=== PATIENT | female | born 1955 | race Hispanic/Latino ===

== ENCOUNTER 2019-12-06 08:21 | Outpatient (CLI) | payer OTHER, SELFPAY ==
--- NOTE | 2019-12-06 11:00 | NEURO_ITS ---
Patient Number: [id number] Impression: # Complains of generalized weakness with history of Sjogren?s Disease. # Mild Carpal Tunnel Syndrome. # No generalized neuropathy. # Normal needle/EMG exam. # Clinical correlation recommended. Nerve Conduction Studies Anti Sensory Summary Table Stim Site NR Peak (ms) P-T Amp (?V) Site1 Site2 Delta-P (ms) Dist (cm) Cain (m/s) Left Median Anti Sensory (2-3nd Digit) Wrist 3.3 9.5 Wrist 2-3nd Digit 3.3 14.0 42 Wrist 3.2 4.8 Wrist 2-3nd Digit 3.3 14.0 42 Right Median Anti Sensory (2-3nd Digit) Wrist 3.4 11.5 Wrist 2-3nd Digit 3.4 14.0 41 Wrist 3.5 3.2 Wrist 2-3nd Digit 3.4 14.0 41 Left Radial Anti Sensory (Base 1st Digit) Wrist 2.4 21.1 Wrist Base 1st Digit 2.4 0.0 Right Radial Anti Sensory (Base 1st Digit) Wrist 2.7 5.4 Wrist Base 1st Digit 2.7 0.0 Left Sup Fibular Anti Sensory (Ant Lat Mall) 14 cm 3.6 13.9 14 cm Ant Lat Mall 3.6 16.0 44 Right Sup Fibular Anti Sensory (Ant Lat Mall) 14 cm 3.4 15.8 14 cm Ant Lat Mall 3.4 16.0 47 Left Sural Anti Sensory (Lat Mall) Calf 3.9 6.8 Calf Lat Mall 3.9 16.0 41 Right Sural Anti Sensory (Lat Mall) Calf 3.9 8.7 Calf Lat Mall 3.9 16.0 41 Left Ulnar Anti Sensory (5th Digit) Wrist 3.3 20.4 Wrist 5th Digit 3.3 14.0 42 Right Ulnar Anti Sensory (5th Digit) Wrist 2.5 17.1 Wrist 5th Digit 2.5 14.0 56 Motor Summary Table Stim Site NR Onset (ms) O-P Amp (mV) Site1 Site2 Delta-0 (ms) Dist (cm) Cain (m/s) Left Median Motor (Abd Poll Brev) Wrist 3.7 4.4 Elbow Wrist 4.4 25.0 57 Elbow 8.1 3.3 Right Median Motor (Abd Poll Brev) Wrist 3.6 2.9 Elbow Wrist 4.4 25.0 57 Elbow 8.0 1.7 Left Peroneal Motor (Vastus Med) Ankle 4.6 1.2 Popit Ankle 7.9 34.0 43 Popit 12.5 0.6 Right Peroneal Motor (Vastus Med) Ankle 4.6 2.2 Popit Ankle 6.3 29.0 46 Popit 10.9 2.3 Left Tibial Motor (Abd Bender Brev) Ankle 5.3 3.0 Knee Ankle 8.1 35.0 43 Knee 13.4 2.2 Right Tibial Motor (Abd Bender Brev) Ankle 5.0 3.3 Knee Ankle 7.9 32.0 41 Knee 12.9 1.3 Left Ulnar Motor (Abd Dig Minimi) Wrist 2.7 4.6 A Elbow Wrist 4.6 25.0 54 A Elbow 7.3 2.4 Right Ulnar Motor (Abd Dig Minimi) Wrist 2.3 7.2 A Elbow Wrist 4.5 25.0 56 A Elbow 6.8 6.2 F Wave Studies NR F-Lat (ms) L-R F-Lat (ms) Left Median (Mrkrs) (Abd Poll Brev) 25.63 0.00 Right Median (Mrkrs) (Abd Poll Brev) 25.63 0.00 Left Peroneal (Mrkrs) (EDB) 49.48 1.28 Right Peroneal (Mrkrs) (EDB) 50.76 1.28 Left Tibial (Mrkrs) (Abd Hallucis) 49.54 0.61 Right Tibial (Mrkrs) (Abd Hallucis) 50.15 0.61 Left Ulnar (Mrkrs) (Abd Dig Min) 26.85 0.18 Right Ulnar (Mrkrs) (Abd Dig Min) 26.68 0.18 EMG Side Muscle Nerve Root Ins Act Fibs Amp Dur Recrt Comment Right 1stDorInt Ulnar C8-T1 Nml Nml Nml Nml Nml Right Ext Indicis Radial (Post Int) C7-8 Nml Nml Nml Nml Nml Right Ext Digitorum Radial (Post Int) C7-8 Nml Nml Nml Nml Nml Right BrachioRad Radial C5-6 Nml Nml Nml Nml Nml Right PronatorTeres Median C6-7 Nml Nml Nml Nml Nml Right Abd Poll Brev Median C8-T1 Nml Nml Nml Nml Nml Right AntTibialis Dp Br Fibular L4-5 Nml Nml Nml Nm
== END 2019-12-06 08:22 | disposition home or self-care (01) ==
PROVIDERS: PCP Family Medicine; Visit Provider Psychiatry & Neurology Neurology
DX: G62.9 Polyneuropathy, unspecified (principal); G56.00 Carpal tunnel syndrome, unspecified upper limb
CPT/HCPCS: 95886; 95913

== ENCOUNTER 2020-01-03 10:21 | Outpatient (CLI) | payer OTHER, SELFPAY ==
--- NOTE | ~2020-01-03 | MR_ITS ---
EXAMINATION: MR cervical spine wo con DATE: 01/03/2020 11:22 INDICATION: Abnormality of gait. TECHNIQUE: Magnetic resonance imaging (MRI) of the cervical spine was performed without intravenous c ontrast. Sequences included sagittal T2-weighted FSE, sagittal T2-weighted FS FSE, sagittal T1-weight ed FSE, axial MERGE, and axial T2-weighted FSE. COMPARISON: None FINDINGS: There is kyphosis of cervical spine. Motion artifact is noted. There is mild chronic anteri or wedging of C3, C4, and C6 vertebral bodies. There is a hemangioma in T1 vertebral body. There is m ildly decreased disc height at C4-C5 and C5-C6. The spinal cord signal intensity is normal. The follo wing disc levels are specifically discussed: C2-C3: The disc does not extend beyond the endplate margin. There is no uncovertebral joint osteoarth ritis. There is moderate left facet joint osteoarthritis. There is mild left neural foraminal stenosi s. There is no central canal stenosis. C3-C4: The disc does not extend beyond the endplate margin. There is no uncovertebral joint osteoarth ritis. There is no facet joint osteoarthritis. There is no neural foraminal stenosis. There is no stacey tral canal stenosis. C4-C5: The disc is bulging. There is moderate right and mild left uncovertebral joint osteoarthritis. There is no facet joint osteoarthritis. There is mild right neural foraminal stenosis. There is mild central canal stenosis. C5-C6: The disc is bulging. There is severe bilateral uncovertebral joint osteoarthritis. There is no facet joint osteoarthritis. There is mild bilateral neural foraminal stenosis. There is mild central canal stenosis. C6-C7: The disc does not extend beyond the endplate margin. There is mild bilateral uncovertebral beverly nt osteoarthritis. There is no facet joint osteoarthritis. There is mild left neural foraminal stenos is. There is no central canal stenosis. C7-T1: The disc does not extend beyond the endplate margin. There is no uncovertebral joint osteoarth ritis. There is mild bilateral facet joint osteoarthritis. There is no neural foraminal stenosis. The re is no central canal stenosis. IMPRESSION: 1. Mild cervical spondylosis. Reviewed, dictated and finalized at location A.
== END 2020-01-03 10:22 | disposition home or self-care (01) ==
PROVIDERS: PCP Family Medicine; Visit Provider Psychiatry & Neurology Neurology
DX: R26.9 Unspecified abnormalities of gait and mobility (principal); M47.812 Spondylosis without myelopathy or radiculopathy, cervical region
CPT/HCPCS: 72141